=== PATIENT | female | born 1995 | race Two or more races ===

== ENCOUNTER 2019-02-06 20:44 | Emergency (ER) | payer SELFPAY ==
[~2019-02-06] VITALS: Ht 154.9 cm; Wt 75.0 kg
[2019-02-06 23:11] VITALS: BP 148/80
== END 2019-02-06 22:53 | disposition home or self-care (01) ==
LOC: EMS 20:46
DX: R68.84 Jaw pain (principal); R51 Headache; H92.02 Otalgia, left ear; Y04.2XXA Assault by strike against or bumped into by another person, initial encounter; Y93.89 Activity, other specified; Y92.89 Other specified places as the place of occurrence of the external cause; Y99.8 Other external cause status
CPT/HCPCS: 70486